=== PATIENT | female | born 1965 | race American Indian/Alaskan Native ===

== ENCOUNTER 2020-09-16 05:43 | Day surgery (SDC) | payer BC, OTHER ==
[~2020-09-16 05:43] MED LIST: Dextrose 5%-0.45% NaCl 1,000 ML IV SCH
[2020-09-16] MEDS ORDERED: fentaNYL 100 MCG/2 ML SDV IV ONE ×4 (05:44→06:46)
[2020-09-16] MEDS ORDERED: Midazolam 1 MG/ML 2 ML SDV IV ONE ×7 (05:44→06:44)
[2020-09-16] MEDS ORDERED: fentaNYL 100 MCG/2 ML SDV ONE (06:14)
[2020-09-16] MEDS ORDERED: Midazolam 1 MG/ML 2 ML SDV ONE (06:14)
--- NOTE | 2020-09-16 07:23 | OR ---
DATE: 09/16/2020 PROCEDURES: Total colonoscopy. INSTRUMENT USED: CF-CX640F Olympus video colonoscope. PREMEDICATIONS: Fentanyl 125 mcg intravenous, Versed 4 mg intravenous. Nasal O2 cannula. The procedure was done under pulse oximetry, BP recording, and school lunch monitor. INDICATION: The patient with Hemoccult positive stools. Colonoscopic examination is done for detection of any polypoid lesions and removal, endoscopic hemostasis therapy if needed. DESCRIPTION OF PROCEDURE: Initial rectal exam was unremarkable. Rigid anoscopy showed small internal hemorrhoids without bleeding from them. The colonoscope was passed with ease up to the ileocecal area. Photographs were taken of the normal-appearing cecum identified by double-bulged ileocecal folds. No bleeding was noted from any of the visualized areas at the commencement of the examination. The bowel preparation was found to be adequate, [place] scale 3 in all the areas, total score 9. No stricture. No vascular ectasia. No large isolated ulcerations seen. No evidence of diffuse inflammatory bowel disease in the form of friability, contact bleeding, or ulcerations. No polyp or tumor mass identified. Probing the proximal sides of folds and flexures using adequate distention and clearing up the stool material, withdrawal of the scope was made, cecum to rectum time over 6 minutes. No bleeding was noted from any of the visualized areas at the completion of examination. IMPRESSION: Internal hemorrhoids. The patient tolerated the procedure well. [facility] /[id number]
--- NOTE | 2020-09-16 08:02 | LETTER ---
09/16/2020 RE: CIERA OVERTON : 1965 Melba Ferreira NP [facility] [address] [place] [address] Dear Ms. Ferreira: Ms. Ciera Overton had colonoscopic examination done this morning and she tolerated the procedure well. I herewith send a copy of the endoscopy note and photographs for your review. Thank you. Sincerely, [facility] /[id number]
[2020-09-16] MEDS ORDERED: Sodium Chloride 0.9% 10 ML Syringe FLUSH PRN (08:17)
[2020-09-16 10:41] VITALS: BP 115/62; PULSE 48
--- NOTE | 2020-09-19 10:02 | LETTER ---
09/19/2020 RE: HILLARYBENRAHEEMSOMMER MONTANEZ : 1965 Melba Ferreira NP [facility] [address] [place] [address] Dear Ms. Ferreira: Ms. Raheem Overton had colonoscopic examination done and tolerated the procedure well. I herewith send a copy of the endoscopy note and photographs for your review. Thank you. Sincerely, [facility] /[id number]
== END 2020-09-16 09:35 | disposition home or self-care (01) ==
LOC: DL.ENDO 05:43
PROVIDERS: ATTEND Internal Medicine Gastroenterology
DX: R19.5 Other fecal abnormalities (principal); K64.8 Other hemorrhoids; E66.09 Other obesity due to excess calories; E55.9 Vitamin D deficiency, unspecified; E53.8 Deficiency of other specified B group vitamins; M25.372 Other instability, left ankle
CPT/HCPCS: J2250; J3010; J7042

== ENCOUNTER 2021-12-20 14:16 | Emergency (ER) | payer BC, MEDICAID, OTHER ==
[2021-12-20 14:52] VITALS: BP 124/74; PULSE 60
[2021-12-20] MEDS ORDERED: Sodium Chloride 0.9% 10 ML Syringe FLUSH PRN (15:23)
[2021-12-20 15:57] LABS: ANION GAP 11.2 mEq/L (7-13); CHLORIDE,CL 105 mmol/L (98-107); SODIUM,NA 141 mmol/L (136-145)
[2021-12-20] MEDS ORDERED: Aspirin 325 MG Tab PO ONE (16:35)
[2021-12-20] MEDS ORDERED: atorvaSTATin 20 MG Tab PO ONE (16:36)
== END 2021-12-20 17:20 | disposition home or self-care (01) ==
LOC: DL.ED 14:16
DX: R20.0 Anesthesia of skin (principal); R20.2 Paresthesia of skin; R53.1 Weakness; K21.9 Gastro-esophageal reflux disease without esophagitis; E66.9 Obesity, unspecified; Z68.31 Body mass index [BMI] 31.0-31.9, adult; Z79.899 Other long term (current) drug therapy
CPT/HCPCS: 36415; 70450; 80053; 83735; 84484; 85025; 85610; 85730; 86140; 93005; 93010; 99284; A9270; J3490

== ENCOUNTER 2021-12-22 12:08 | Emergency (ER) | payer MEDICAID, OTHER ==
[2021-12-22 12:34] VITALS: BP 112/63; PULSE 73
[2021-12-22 13:04] LABS: ANION GAP 16.2 mEq/L (7-13); CHLORIDE,CL 101 mmol/L (98-107); SODIUM,NA 136 mmol/L (136-145)
[2021-12-22] MEDS ORDERED: Ondansetron 4 MG/2 ML SDV IVPUSH ONE (13:13)
[2021-12-22] MEDS: Sodium Chloride 0.9% 10 ML Syringe FLUSH PRN ×2 (13:13→15:00)
[2021-12-22] MEDS ORDERED: Potassium Chloride 10 MEQ Tab.ER PO ONE (14:33)
[2021-12-22] MEDS ORDERED: Famotidine 20 MG/2 ML SDV IVPUSH ONE (14:34)
[2021-12-22] MEDS ORDERED: Ondansetron 4 MG/2 ML SDV IV ONE (14:34)
[2021-12-22] MEDS ORDERED: Potassium Chloride 10% 20 MEQ/15 ML Soln 15 ML UD Cup PO ONE (15:00)
== END 2021-12-22 15:38 | disposition home or self-care (01) ==
LOC: DL.ED 12:08
DX: R07.89 Other chest pain (principal); E87.6 Hypokalemia; K21.9 Gastro-esophageal reflux disease without esophagitis; E66.9 Obesity, unspecified; Z68.37 Body mass index [BMI] 37.0-37.9, adult; Z79.82 Long term (current) use of aspirin; Z79.899 Other long term (current) drug therapy
CPT/HCPCS: 36415; 70450; 80053; 80307; 82947; 84484; 85025; 85610; 85730; 86140; 93005; 96374; 96375; 99285-25; A9270-GY; J2405; J3490

== ENCOUNTER 2022-01-01 10:19 | Emergency (ER) | payer MEDICAID, OTHER ==
[2022-01-01] MEDS ORDERED: Sodium Chloride 0.9% 1,000 ML IV ONE (10:42)
[2022-01-01 10:57] VITALS: BP 112/64; PULSE 60
[2022-01-01 11:13] LABS: ANION GAP 14.5 mEq/L (7-13); CHLORIDE,CL 108 mmol/L (98-107); SODIUM,NA 145 mmol/L (136-145)
[2022-01-01] MEDS ORDERED: Ketorolac 30 MG/ML SDV IVPUSH ONE (11:27)
== END 2022-01-01 12:34 | disposition home or self-care (01) ==
LOC: DL.ED 10:19
DX: G44.209 Tension-type headache, unspecified, not intractable (principal); E86.0 Dehydration; E66.9 Obesity, unspecified; Z68.31 Body mass index [BMI] 31.0-31.9, adult; Z79.899 Other long term (current) drug therapy
CPT/HCPCS: 36415; 80053; 81001; 84484; 85025; 87086; 93005; 96361; 96374; 99284-25; J1885; J7030

== ENCOUNTER 2022-04-14 22:46 | Emergency (ER) | payer MEDICAID ==
[2022-04-15 03:28] VITALS: BP 127/76; PULSE 77
== END 2022-04-15 04:54 | disposition home or self-care (01) ==
LOC: DL.ED 22:46
DX: R51.9 Headache, unspecified (principal); K21.9 Gastro-esophageal reflux disease without esophagitis; E66.9 Obesity, unspecified; Z68.28 Body mass index [BMI] 28.0-28.9, adult; Z86.16 Personal history of COVID-19; Z79.899 Other long term (current) drug therapy
CPT/HCPCS: 70450; 70486; 99282; 99284

== ENCOUNTER 2022-04-16 13:48 | Emergency (ER) | payer MEDICAID ==
[2022-04-16 15:57] VITALS: BP 108/75; PULSE 96
[2022-04-16 18:29] LABS: ANION GAP 14.7 mEq/L (7-13)
== END 2022-04-16 19:30 | disposition home or self-care (01) ==
LOC: DL.ED 13:48
DX: R20.0 Anesthesia of skin (principal); K21.9 Gastro-esophageal reflux disease without esophagitis; E66.9 Obesity, unspecified; Z68.28 Body mass index [BMI] 28.0-28.9, adult; Z86.73 Personal history of transient ischemic attack (TIA), and cerebral infarction without residual deficits; Z79.899 Other long term (current) drug therapy
CPT/HCPCS: 36415; 70450; 80053; 82607; 84443; 85025; 99283; 99284

== ENCOUNTER 2022-05-24 12:38 | Emergency (ER) | payer MEDICAID ==
[2022-05-24] MEDS ORDERED: Sodium Chloride 0.9% 1,000 ML IV ONE ×2 (15:35→16:54)
[2022-06-18 16:09] LABS: CHLORIDE,CL 105 mmol/L (98-107); ESTIMATED GFR 15 mL/min (>=60); SODIUM,NA 137 mmol/L (136-145)
[2022-06-18 16:11] LABS: CHLORIDE,CL 99 mmol/L (98-107); SODIUM,NA 134 mmol/L (136-145)
[2022-06-18 16:12] LABS: ANION GAP 13.3 mEq/L (7-13); ESTIMATED GFR 13 mL/min (>=60)
[2022-06-18 16:13] LABS: PTT,PARTIAL THROMBOPLSTIN TIME 25.8 SEC (22.0-34.0)
== END 2022-05-24 18:16 | disposition home or self-care (01) ==
LOC: DL.ED 12:38
DX: R79.89 Other specified abnormal findings of blood chemistry (principal); E86.0 Dehydration; E11.9 Type 2 diabetes mellitus without complications
CPT/HCPCS: 36415; 80048; 80053; 83880; 84100; 85025; 85610; 85730; 96360; 96361; 99284; J7030

== ENCOUNTER 2022-06-26 22:23 | Emergency (ER) | payer MEDICAID ==
[2022-06-26 22:37] VITALS: BP 140/72; PULSE 81
[2022-06-26 23:53] LABS: ANION GAP 14.6 mEq/L (7-13)
[2022-06-27] MEDS ORDERED: Sodium Chloride 0.9% 1,000 ML IV ONE (00:04)
[2022-06-27] MEDS ORDERED: Magnesium Sulfate/Water 2 GM in Premix Bag 1 BAG IV ONE (00:05)
[2022-06-27 02:57] LABS: ANION GAP 14.6 mEq/L (7-13)
== END 2022-06-27 02:49 | disposition home or self-care (01) ==
LOC: DL.ED 22:23
DX: D51.9 Vitamin B12 deficiency anemia, unspecified (principal); E87.1 Hypo-osmolality and hyponatremia; E83.42 Hypomagnesemia; E66.9 Obesity, unspecified; Z68.27 Body mass index [BMI] 27.0-27.9, adult; Z79.899 Other long term (current) drug therapy; Z90.49 Acquired absence of other specified parts of digestive tract
CPT/HCPCS: 36415; 70450; 80048; 80053; 81001; 82272; 83735; 84443; 85025; 87086; 96365; 99284; J3475; J7030

== ENCOUNTER 2022-06-29 20:32 | Emergency (ER) | payer MEDICAID, OTHER ==
[2022-06-29 21:17] VITALS: BP 128/55; PULSE 72
[2022-06-29 21:55] LABS: ANION GAP 13.5 mEq/L (7-13)
[2022-06-29] MEDS ORDERED: Sodium Chloride 0.9% 1,000 ML IV ONE (22:03)
== END 2022-06-29 23:08 | disposition home or self-care (01) ==
LOC: DL.ED 20:32
DX: E87.1 Hypo-osmolality and hyponatremia (principal); E66.9 Obesity, unspecified; Z68.27 Body mass index [BMI] 27.0-27.9, adult; Z79.899 Other long term (current) drug therapy; Z90.49 Acquired absence of other specified parts of digestive tract
CPT/HCPCS: 36415; 80053; 85025; 96360; 99284; J7030

== ENCOUNTER → 2022-06-30 | Day surgery (SDC) | payer MEDICAID ==
[~2022-06-30] MED LIST changes: +Midazolam 1 MG/ML 2 ML SDV IV ONE; +Midazolam 1 MG/ML 2 ML SDV ONE; +Sodium Chloride 0.9% 10 ML Syringe FLUSH PRN; +Sodium Chloride 0.9% 10 ML Syringe FLUSH SCH; +fentaNYL 100 MCG/2 ML SDV IV ONE; +fentaNYL 100 MCG/2 ML SDV ONE
[2022-06-30 07:12] VITALS: BP 117/64; PULSE 75
== END | disposition home or self-care (01) ==
LOC: DL.ENDO 06:03
PROVIDERS: ATTEND Internal Medicine Gastroenterology
DX: K29.50 Unspecified chronic gastritis without bleeding (principal); K31.89 Other diseases of stomach and duodenum; K64.8 Other hemorrhoids; D72.820 Lymphocytosis (symptomatic); E53.8 Deficiency of other specified B group vitamins; K21.9 Gastro-esophageal reflux disease without esophagitis; E78.5 Hyperlipidemia, unspecified; Z90.49 Acquired absence of other specified parts of digestive tract; Z98.890 Other specified postprocedural states
CPT/HCPCS: 43239; 87077; J2250; J3010; J7042

== ENCOUNTER → 2022-08-20 | Day surgery (SDC) | payer MEDICAID ==
[~2022-08-20] MED LIST changes: -Dextrose 5%-0.45% NaCl 1,000 ML IV SCH
[2022-08-20] MEDS: Dextrose 5%-0.45% NaCl 1,000 ML IV SCH (06:10)
[2022-08-20] MEDS: fentaNYL 100 MCG/2 ML SDV IV ONE ×2 (06:40→06:41)
[2022-08-20] MEDS: Midazolam 1 MG/ML 2 ML SDV IV ONE ×6 (06:41→06:50)
[2022-08-20 08:34] VITALS: BP 109/55; PULSE 42
== END | disposition home or self-care (01) ==
LOC: DL.ENDO 05:45
PROVIDERS: ATTEND Internal Medicine Gastroenterology
DX: K63.3 Ulcer of intestine (principal); N18.9 Chronic kidney disease, unspecified; D50.9 Iron deficiency anemia, unspecified; D63.1 Anemia in chronic kidney disease; K52.9 Noninfective gastroenteritis and colitis, unspecified; K21.9 Gastro-esophageal reflux disease without esophagitis; E53.8 Deficiency of other specified B group vitamins
CPT/HCPCS: 45380; J2250; J3010; J7042

== ENCOUNTER 2022-09-19 18:32 | Emergency (ER) | payer MEDICAID ==
[2022-09-19 18:48] VITALS: BP 139/87; PULSE 94
[2022-09-19 19:38] LABS: ANION GAP 16.3 mEq/L (7-13)
[2022-09-19] MEDS ORDERED: Sodium Chloride 0.9% 1,000 ML IV ONE (20:09)
== END 2022-09-19 21:35 | disposition home or self-care (01) ==
LOC: DL.ED 18:32
DX: E86.0 Dehydration (principal); E66.9 Obesity, unspecified; Z68.29 Body mass index [BMI] 29.0-29.9, adult; Z79.899 Other long term (current) drug therapy; Z86.16 Personal history of COVID-19; Z90.49 Acquired absence of other specified parts of digestive tract
CPT/HCPCS: 36415; 80053; 83735; 85025; 96360; 99284; J7030; 99283

== ENCOUNTER 2022-10-21 05:47 | Day surgery (SDC) | payer MEDICAID ==
[~2022-10-21 05:47] MED LIST changes: +Dextrose 5%-0.45% NaCl 1,000 ML IV SCH; -Midazolam 1 MG/ML 2 ML SDV IV ONE; -Midazolam 1 MG/ML 2 ML SDV ONE; -Sodium Chloride 0.9% 10 ML Syringe FLUSH SCH; -fentaNYL 100 MCG/2 ML SDV IV ONE; -fentaNYL 100 MCG/2 ML SDV ONE
[2022-10-21] MEDS ORDERED: Midazolam 1 MG/ML 2 ML SDV IV ONE ×7 (05:48→08:01)
[2022-10-21] MEDS ORDERED: fentaNYL 100 MCG/2 ML SDV IV ONE ×7 (05:48→08:10)
[2022-10-21] MEDS ORDERED: Midazolam 1 MG/ML 2 ML SDV ONE (06:11)
[2022-10-21] MEDS ORDERED: fentaNYL 100 MCG/2 ML SDV ONE (06:12)
[2022-10-21] MEDS ORDERED: Sodium Chloride 0.9% 10 ML Syringe FLUSH PRN (07:41)
[2022-10-21] MEDS ORDERED: Dextrose 5%-0.45% NaCl 1,000 ML IV SCH (07:45)
[2022-10-21] MEDS ORDERED: Sodium Chloride 0.9% 10 ML Syringe FLUSH SCH (09:00)
[2022-10-21 11:45] VITALS: BP 109/57; PULSE 54
== END 2022-10-21 10:12 | disposition home or self-care (01) ==
LOC: DL.ENDO 05:47
PROVIDERS: ATTEND Internal Medicine Gastroenterology
DX: Z12.11 Encounter for screening for malignant neoplasm of colon (principal); N18.9 Chronic kidney disease, unspecified; D64.9 Anemia, unspecified; E61.1 Iron deficiency; K21.9 Gastro-esophageal reflux disease without esophagitis; E53.8 Deficiency of other specified B group vitamins
CPT/HCPCS: J2250; J3010; J7042

== ENCOUNTER 2025-05-21 15:26 | Emergency (ER) | payer MEDICAID ==
[2025-05-21 16:00] LABS: BASOPHILS PERCENT AUTO 0.3 % (0.0-1.0); EOSINOPHILS PERCENT AUTO 0.9 % (1.0-3.0); LYMPHOCYTES PERCENT AUTO 50.1 % (20.5-50.1); MONOCYTES PERCENT AUTO 9.0 % (2-8); NEUTROPHILS PERCENT AUTO 39.7 % (42.2-75.2); PLATELET COUNT,PLT 235 10^3/uL (150-450); RED BLOOD CELL COUNT 4.42 10^6/uL (4.2-5.4); WHITE BLOOD CELL COUNT,WBC 10.5 10^3/uL (5.0-10.0)
[2025-05-21 16:16] LABS: A/G RATIO 1.2; ALANINE AMINOTRANSFERASE,ALT 25 U/L (14-59); ASPARTATE AMNIOTRANSFERASE,AST 23 U/L (15-37); BILIRUBIN TOTAL 0.8 mg/dL (0.2-1.0); BLOOD UREA NITROGEN,BUN 30 mg/dL (7-18); CARBON DIOXIDE,CO2 18 mmol/L (21-32); CHLORIDE,CL 103 mmol/L (98-107); CREATININE 1.44 mg/dL (0.55-1.02); ESTIMATED GFR 42 mL/min (>=60); GLUCOSE RANDOM 122 mg/dL (70-99); POTASSIUM,K 3.1 mmol/L (3.5-5.1); PROTEIN TOTAL,TP 7.3 g/dL (6.4-8.2); SODIUM,NA 139 mmol/L (136-145)
[2025-05-21 16:19] LABS: INR 0.9 (0.9-1.2); PTT,PARTIAL THROMBOPLSTIN TIME 22.7 SEC (22.0-34.0)
[2025-05-21] MEDS: Potassium Chloride 10 MEQ Tab.ER PO ONE (16:54)
[2025-05-21 18:05] VITALS: BP 124/67; PULSE 60
== END 2025-05-21 17:47 | disposition other institution (70) ==
LOC: DL.ED 15:26
DX: G45.9 Transient cerebral ischemic attack, unspecified (principal); K21.9 Gastro-esophageal reflux disease without esophagitis; M19.90 Unspecified osteoarthritis, unspecified site; E66.9 Obesity, unspecified; Z86.16 Personal history of COVID-19; Z79.899 Other long term (current) drug therapy; Z90.49 Acquired absence of other specified parts of digestive tract; Z68.28 Body mass index [BMI] 28.0-28.9, adult
CPT/HCPCS: 36415; 70450; 80053; 82947; 83735; 84484; 85025; 85610; 85730; 93005; 93010; 96360; 99284; 99285-25; A9270-GY; J7030

== ENCOUNTER 2025-06-01 15:21 | Emergency (ER) | payer MEDICAID ==
[2025-06-01] MEDS ORDERED: Sodium Chloride 0.9% 10 ML Syringe FLUSH PRN ×2 (15:40)
[2025-06-01 15:55] LABS: BASOPHILS PERCENT AUTO 0.2 % (0.0-1.0); EOSINOPHILS PERCENT AUTO 1.1 % (1.0-3.0); LYMPHOCYTES PERCENT AUTO 28.0 % (20.5-50.1); MONOCYTES PERCENT AUTO 9.3 % (2-8); NEUTROPHILS PERCENT AUTO 61.4 % (42.2-75.2); PLATELET COUNT,PLT 242 10^3/uL (150-450); RED BLOOD CELL COUNT 4.46 10^6/uL (4.2-5.4); WHITE BLOOD CELL COUNT,WBC 5.3 10^3/uL (5.0-10.0)
[2025-06-01 16:17] LABS: A/G RATIO 1.3; ALANINE AMINOTRANSFERASE,ALT 43 U/L (14-59); ASPARTATE AMNIOTRANSFERASE,AST 24 U/L (15-37); BILIRUBIN TOTAL 0.8 mg/dL (0.2-1.0); BLOOD UREA NITROGEN,BUN 24 mg/dL (7-18); CARBON DIOXIDE,CO2 25 mmol/L (21-32); CHLORIDE,CL 107 mmol/L (98-107); CREATININE 1.32 mg/dL (0.55-1.02); ESTIMATED GFR 47 mL/min (>=60); GLUCOSE RANDOM 108 mg/dL (70-99); INR 0.9 (0.9-1.2); POTASSIUM,K 4.2 mmol/L (3.5-5.1); PROTEIN TOTAL,TP 7.4 g/dL (6.4-8.2); SODIUM,NA 143 mmol/L (136-145)
[2025-06-01 16:52] VITALS: BP 132/59; PULSE 61
== END 2025-06-01 16:40 | disposition home or self-care (01) ==
LOC: DL.ED 15:21
DX: R20.2 Paresthesia of skin (principal); R00.2 Palpitations; K21.9 Gastro-esophageal reflux disease without esophagitis; Z79.899 Other long term (current) drug therapy; Z86.16 Personal history of COVID-19
CPT/HCPCS: 36415; 80053; 84484; 85025; 85610; 93005; 99285